=== PATIENT | female | born 1960 | race Caucasian/White ===

== ENCOUNTER 2024-06-18 10:29 | Inpatient (IN) | payer MEDICARE ==
[~2024-06-18] VITALS: Ht 157.5 cm; Wt 68.0 kg
[2024-06-18 12:08] LABS: BASOPHILS ABSOLUTE AUTO 0.05 K/mm3 (0.00-0.23); BASOPHILS PERCENT AUTO 1 % (0-2); EOSINOPHILS ABSOLUTE AUTO 0.07 K/mm3 (0.00-0.68); EOSINOPHILS PERCENT AUTO 1 % (0-6); Hematocrit 34.7 % (33.0-51.0); Hemoglobin 10.2 g/dL (11.5-16.0); IMMATURE GRAN ABSOLUTE AUTO 0.02 K/mm3 (0.00-0.10); IMMATURE GRAN PERCENT AUTO 0 % (0-1); LYMPHOCYTES ABSOLUTE AUTO 1.55 K/mm3 (0.84-5.20); LYMPHOCYTES PERCENT AUTO 17 % (21-46); MONOCYTES ABSOLUTE AUTO 0.57 K/mm3 (0.16-1.47); MONOCYTES PERCENT AUTO 6 % (4-13); Mean Corpuscular HGB 21.2 pg (26.0-34.0); Mean Corpuscular HGB Conc 29.4 g/dL (31.5-36.5); Mean Corpuscular Volume 72 fL (80-100); Mean Platelet Volume 9.4 fL (9.1-12.4); NEUTROPHILS ABSOLUTE AUTO 6.66 K/mm3 (1.96-9.15); NEUTROPHILS PERCENT AUTO 75 % (41-73); Platelet Count 529 K/mm3 (150-400); RDW Coefficient Variation 18.6 % (11.7-14.2); RDW Standard Deviation 47.8 fL (35.1-46.3); Red Blood Cell Count 4.82 M/mm3 (3.80-5.20); White Blood Cell Count 8.92 K/mm3 (4.00-11.30)
[2024-06-18 12:27] LABS: Albumin/Globulin Ratio 0.6 (0.8-1.8); Bilirubin, Total 0.2 mg/dL (0.1-1.0); Bun/Creatinine Ratio 21.9 (12.0-20.0); Calcium, Blood 9.2 mg/dL (8.5-10.1); Creatinine, Blood 0.37 mg/dL (0.40-1.00); Globulin, Blood 4.9 g/dL (2.2-4.0); Potassium, Blood 3.8 mmol/L (3.5-5.5); Total Protein, Blood 7.9 g/dL (6.4-8.2)
[2024-06-18] MEDS ORDERED: Nicotine 14 MG PATCH TOP ONE (16:35)
[2024-06-18] MEDS ORDERED: LORazepam 2 MG/ML 1ML Injection IV ONE (16:55)
[2024-06-18] MEDS ORDERED: Ondansetron HCl 2 MG / ML 2ML Vial IV PRN (17:50)
[2024-06-18] MEDS ORDERED: HydrOXYzine Pamoate 25 MG Cap PO PRN (17:50)
[2024-06-18] MEDS ORDERED: Ipratropium/Albuterol SulF 2.5-0.5MG/3 ML Amp INH SCH (17:50)
[2024-06-18] MEDS ORDERED: FLU VACC TS2024-25(6MOS UP)/PF 45 MCG/0.5 ML SYRINGE IM ONE (17:55)
[2024-06-18] MEDS ORDERED: Albuterol 2.5 MG/3 ML VIAL INH PRN (17:55)
[2024-06-18] MEDS ORDERED: Albuterol 2.5 MG/3 ML VIAL INH ONE (18:00)
[2024-06-18] MEDS ORDERED: PredniSONE 20 MG Tab PO SCH (18:00)
[2024-06-18] MEDS ORDERED: Piperacillin/Tazobactam Sod 3.375 GM in NS 100 ML IV ONE (18:05)
[2024-06-18 18:40] LABS: Source, Urine Clean Catch
[2024-06-18 18:58] LABS: Appearance, Urine Clear (Clear); Bilirubin, Urine Neg (Neg); Blood, Urine 1+ (Neg); Color, Urine Yellow (P-Yellow); Glucose Qualitative, Urine Neg (Neg); Ketones, Urine Neg (Neg); Leukocyte Esterase, Urine Neg (Neg); Nitrite, Urine Neg (Neg); Protein, Urine Neg (Neg); Urobilinogen, Urine NORM (Normal)
[2024-06-18 18:59] LABS: White Blood Cells, Urine 0-2 /hpf (0-5)
[2024-06-18 19:00] LABS: Bacteria Few /hpf; Squamous Epithelial Cells Rare /hpf (Few); Yeast/Fungi Urine Mod /hpf
[2024-06-18 19:33] VITALS: BP 149/63
[2024-06-18] MEDS ORDERED: GABA100 PO (19:42)
[2024-06-18] MEDS ORDERED: DULO60 PO (19:42)
[2024-06-18] MEDS ORDERED: FLUT1DIS5 INH (19:44)
[2024-06-18] MEDS ORDERED: Lactobacil 2-S.Thermo-Bifido 1 1 Cap PO SCH (21:00)
[2024-06-18 22:15] LABS: U Amphetamine Screen Not Detected; U Barbituate Screen Not Detected; U Benzodiazapine Screen Not Detected; U Buprenorphine Screen Not Detected; U Cannabinoids Screen DETECTED; U Cocaine Screen Not Detected; U Methadone Screen Not Detected; U Methamphetamine Screen Not Detected; U Opiates Screen Not Detected; U Oxycodone Screen Not Detected; U Phencyclidine Screen Not Detected
[2024-06-18] MEDS ORDERED: NS 1,000 ML IV SCH (23:30)
[2024-06-19] MEDS ORDERED: Piperacillin/Tazobactam Sod 3.375 GM in NS 100 ML IV SCH
[2024-06-19] MEDS ORDERED: Acetaminophen 325 MG TABLET PO PRN (00:40)
[2024-06-19 03:14] VITALS: BP 153/69
--- NOTE | 2024-06-19 04:06 | NUR ---
SHIFT SUMMARY SANCHEZ WAS DROWSY BUT FULLY ORIENTED WHEN SHE ARRIVED FROM THE ED. PT ABLE TO AMBULATE TO BED INDEPENDENTLY. PT DESCRIBES MILD PAIN TO ABD. ADMIT COMPLETE. PT HAS WHAT LOOKS LIKE A TUNELING ULCER UNDER PANNUS, ABD PAD APPLIED. PAINFUL RED UNBLANCHABLE SKIN TO COCCYX. PLAN FOR SURGERY ON DAYSHIFT TO HAVE A DRAIN PLACED.
[2024-06-19 04:39] LABS: BASOPHILS ABSOLUTE AUTO 0.02 K/mm3 (0.00-0.23); BASOPHILS PERCENT AUTO 0 % (0-2); EOSINOPHILS PERCENT AUTO 0 % (0-6); Hematocrit 32.2 % (33.0-51.0); Hemoglobin 9.5 g/dL (11.5-16.0); IMMATURE GRAN ABSOLUTE AUTO 0.02 K/mm3 (0.00-0.10); IMMATURE GRAN PERCENT AUTO 0 % (0-1); LYMPHOCYTES ABSOLUTE AUTO 0.66 K/mm3 (0.84-5.20); LYMPHOCYTES PERCENT AUTO 9 % (21-46); MONOCYTES ABSOLUTE AUTO 0.18 K/mm3 (0.16-1.47); MONOCYTES PERCENT AUTO 3 % (4-13); Mean Corpuscular HGB 20.8 pg (26.0-34.0); Mean Corpuscular HGB Conc 29.5 g/dL (31.5-36.5); Mean Corpuscular Volume 71 fL (80-100); Mean Platelet Volume 9.2 fL (9.1-12.4); NEUTROPHILS ABSOLUTE AUTO 6.42 K/mm3 (1.96-9.15); NEUTROPHILS PERCENT AUTO 88 % (41-73); Platelet Count 460 K/mm3 (150-400); RDW Coefficient Variation 18.6 % (11.7-14.2); RDW Standard Deviation 46.8 fL (35.1-46.3); Red Blood Cell Count 4.56 M/mm3 (3.80-5.20)
[2024-06-19 04:54] LABS: International Normalized Ratio 0.91; Prothrombin Time Results 9.8 Sec (9.7-11.5)
[2024-06-19 05:04] LABS: Calcium, Blood 8.6 mg/dL (8.5-10.1); Creatinine, Blood 0.41 mg/dL (0.40-1.00); Potassium, Blood 3.8 mmol/L (3.5-5.5)
[2024-06-19] MEDS ORDERED: ALBU90OI INH (07:42)
[2024-06-19] MEDS ORDERED: HYDHCL25 PO (07:44)
[2024-06-19 07:47] VITALS: BP 142/77
[2024-06-19] MEDS ORDERED: Nicotine 14 MG PATCH TOP SCH (09:50)
[2024-06-19] MEDS ORDERED: Diazepam 2 MG Tab PO ONE (13:30)
[2024-06-19] MEDS ORDERED: Mometasone/Formoterol MDI 200/5 mcg 13 GM INH SCH (13:40)
--- NOTE | 2024-06-19 13:50 | NUR ---
PT TO RADIOLOGY FOR DRAIN PLACEMENT
[2024-06-19] MEDS ORDERED: Gabapentin 100 MG Cap PO SCH (14:00)
[2024-06-19] MEDS ORDERED: DULoxetine HCL 60 MG Capsule DR PO SCH (14:00)
[2024-06-19 15:01] VITALS: BP 142/74
--- NOTE | 2024-06-19 15:49 | NUR ---
PT BACK TO ROOM FROM DRAIN PLACEMENT, URISIL DRAIN TO RLQ DRAINING PURULENT DRAINAGE. PT IS ALERT AND RESPONSIVE, VSS, RESTING IN BED. DENIES PAIN. CALL LIGHT IN REACH.
--- NOTE | 2024-06-19 16:39 | NUR ---
SHIFT SUMMARY PT IS A/OX4, SBA TO AMBULATE, VOIDING APPROPRIATELY. FLUIDS GIVEN PER EMAR. URISIL DRAIN IN PLACE DRAINING PURULENT FLUID. ULCER/ABSESS TO RLQ IS OPEN AND DRAINING PURULENT FLUID WELL, ABD PAD PLACED TO ABSORB DRAINAGE, REPLACED X3 THIS SHIFT. TOLERATING REG DIET. PT REQUESTING MORE PAIN MEDICATION, NOTFIIED DR. FAUSTO DR. TO PUT IN ORDERS FOR ADDITIONAL PAIN MEDS. VSS. PT CURRENTLY RESTING IN BED W/ FAMILY AT BEDSIDE.
--- NOTE | 2024-06-19 16:53 | NUR ---
ZOSYN PT TRANSPORTED TO RADIOLOGY DURING 1200 DOSE OF ZOSYN GIVEN AT 1328, ABOUT 30 MLS OF ZOSYN REMAINING. WHEN PT ARRIVED BACK TO UNIT FROM GETTING DRAIN PLACED, IV WAS INFILTRATED. AFTER IV ACCESS RESTABLISHED, 1200 DOSE OF ZOSYN WAS CONTINUED. CONSULTED PHARMACY ABOUT WHETHER OR NOT TO RESUME NORMAL ZOSYN SCHEDULE, PHARMACY ADVISED TO CONSULT PROVIDER. DR. LAMBERT CONSULTED, OK TO RESUME SCHEDULE FOR ZOSYN AND ADMINISTER [address] LAMBERT.
[2024-06-19] MEDS ORDERED: FentaNYL Citrate 50 MCG/ML 2 ML Injection IV PRN (16:55)
[2024-06-19] MEDS ORDERED: OxyCODONE 5 mg/Acetamin 325 mg TABLET PO PRN (18:45)
[2024-06-19 18:52] VITALS: BP 137/67
[2024-06-20 00:12] VITALS: BP 140/68
[2024-06-20 03:17] VITALS: BP 132/79
[2024-06-20 04:39] LABS: Hematocrit 27.9 % (33.0-51.0); Hemoglobin 8.1 g/dL (11.5-16.0); Mean Corpuscular HGB 20.8 pg (26.0-34.0); Mean Corpuscular Volume 72 fL (80-100); Platelet Count 393 K/mm3 (150-400); RDW Coefficient Variation 18.6 % (11.7-14.2); RDW Standard Deviation 47.9 fL (35.1-46.3); Red Blood Cell Count 3.89 M/mm3 (3.80-5.20); White Blood Cell Count 6.26 K/mm3 (4.00-11.30)
[2024-06-20 05:05] LABS: Bun/Creatinine Ratio 31.3 (12.0-20.0); Calcium, Blood 8.6 mg/dL (8.5-10.1); Creatinine, Blood 0.45 mg/dL (0.40-1.00); Potassium, Blood 3.2 mmol/L (3.5-5.5)
--- NOTE | 2024-06-20 06:41 | NUR ---
POD 1 S/P CT DRAIN PLACEMENT. URESIL DRAIN INTACT W/BROWN PURULANT DRNG. LOWER ABD DRESSING CDI. PT REP LESS PAIN SINCE DRAIN PLACEMENT, PAIN MGD PER EMAR W/REP RELIEF. PT IVF AND ABX CONT PER EMAR. PT AMB IN ROOM W/SBA, SAMEER WELL.
[2024-06-20 07:00] VITALS: BP 119/68
[2024-06-20] MEDS ORDERED: Potassium Chloride 20 MEQ TabCR PO ONE (09:00)
[2024-06-20] MEDS ORDERED: Arginine/Glutamine/Calcium Hmb 1 Packet PO SCH (09:00)
[2024-06-20 14:22] VITALS: BP 128/61
--- NOTE | 2024-06-20 16:13 | NUR ---
SHIFT SUMMARY PT HAD DRAIN PLACED TO RLQ YESTERDAY, DRAINING BROWN PURULENT FLUID. DRESSING TO RLQ ULCER REMAINS C/D/I. PT IS A SBA TO THE BR, VOIDING, TOLERATING REG DIET. PT MEDICATED FOR PAIN AND ANXIETY PRN W/ GOOD RESULTS. VSS. IV FLUIDS GIVEN ORDERED, PT ENCOURAGED TO DRINK FLUIDS. PT IS REFUSING PREDNISONE IT MAKES HER "NANCY", BUT IV ABX GIVEN ORDERED. PT CURRENTLY RESTING, CALL LIGHT IN REACH.
[2024-06-20 19:57] VITALS: BP 95/54
--- NOTE | 2024-06-21 04:51 | NUR ---
SHIFT SUMMARY PATIENT SLEPT SOUNDLY IN LONG INTERVALS, MEDCATED ONCE FOR PAIN AND ANXIETY.
[2024-06-21 05:27] VITALS: BP 153/88
[2024-06-21 06:57] VITALS: BP 129/56
[2024-06-21] MEDS ORDERED: GuaiFENesin 600 MG TabCR PO SCH (13:00)
[2024-06-21 15:19] VITALS: BP 131/62
--- NOTE | 2024-06-21 15:19 | NUR ---
HAND OFF SUMMARY: PATIENT IS ALERT AND ORIENTED X4 AND ACTIVE IN HER CARE. IS SATTING >92% ON ROOM AIR, EVEN AND UNLABORED BREATHING. PATIENT GOT UP AND SAT IN CHAIR AND IS STAND BY ASSIST TO BATHROOM TO MANGE LINES/CHORDS. MEPELEX AND BARRIER CREAM WAS PLACED ON PATIENTS COCCYX IT IS RED. PLAN IS AWIATING BLOOD CULTURES TO RETURN. URISIL DRAIN IS INTACT AND DRAINING PURULENT BLOOD TINGED FLUID. NO EVENTS THROUGHOUT SHIFT, WILL REPORT TO RECEVING RN.
[2024-06-21 19:34] VITALS: BP 119/64
[2024-06-22 03:53] VITALS: BP 151/68
--- NOTE | 2024-06-22 04:36 | NUR ---
SHIFT SUMMARY NOC. PT A/O X4. PT'S URESIL DRAIN PATENT AND FREE OF KINKS, PRODUCING PURULENT SEROSANG DRAINAGE. PT MEDICATED FOR PAIN X1 WITH REPORTED RELIEF OF SX. PT VOIDING URINE AND TOLERATING DIET. DENIES N/V. PT AMBULATORY WITH SBA FOR CORD MANAGEMENT. PT MAKES NEEDS KNOWN, CALL LIGHT IN REACH.
[2024-06-22 07:24] VITALS: BP 132/65
[2024-06-22 07:32] VITALS: BP 132/65
[2024-06-22 09:03] LABS: BASOPHILS ABSOLUTE AUTO 0.04 K/mm3 (0.00-0.23); BASOPHILS PERCENT AUTO 1 % (0-2); EOSINOPHILS PERCENT AUTO 2 % (0-6); Hematocrit 29.7 % (33.0-51.0); Hemoglobin 8.7 g/dL (11.5-16.0); IMMATURE GRAN ABSOLUTE AUTO 0.01 K/mm3 (0.00-0.10); IMMATURE GRAN PERCENT AUTO 0 % (0-1); LYMPHOCYTES ABSOLUTE AUTO 1.85 K/mm3 (0.84-5.20); LYMPHOCYTES PERCENT AUTO 32 % (21-46); MONOCYTES ABSOLUTE AUTO 0.38 K/mm3 (0.16-1.47); MONOCYTES PERCENT AUTO 7 % (4-13); Mean Corpuscular HGB Conc 29.3 g/dL (31.5-36.5); Mean Corpuscular Volume 72 fL (80-100); Mean Platelet Volume 9.3 fL (9.1-12.4); NEUTROPHILS PERCENT AUTO 59 % (41-73); Platelet Count 387 K/mm3 (150-400); RDW Coefficient Variation 18.6 % (11.7-14.2); RDW Standard Deviation 47.7 fL (35.1-46.3); Red Blood Cell Count 4.15 M/mm3 (3.80-5.20); White Blood Cell Count 5.78 K/mm3 (4.00-11.30)
[2024-06-22 09:16] LABS: Albumin, Blood 2.4 g/dL (3.4-5.0); Anion Gap 9 mmol/L (3-11); Blood Urea Nitrogen 10 mg/dL (8-24); CO2, Blood 27 mmol/L (21-32); Calcium, Blood 8.4 mg/dL (8.5-10.1); Chloride, Blood 111 mmol/L (98-108); Creatinine, Blood 0.42 mg/dL (0.40-1.00); Glomerular Filtration Rate 108 (60-); Glucose, Blood 147 mg/dL (70-99); Phosphorus, Blood 3.1 mg/dL (2.5-4.9); Potassium, Blood 3.5 mmol/L (3.5-5.5); Sodium, Blood 143 mmol/L (136-145)
--- NOTE | 2024-06-22 14:01 | NUR ---
Pt. is resting in her bed, but responds when I enter the room. Pt. displays evidence of being both pleasant and curious. Facilitate a life review, and consider matters of asher and belief. Pt. verbalized an interest in the local [facility]. With pastoral care and a calming presence this terminal gauger supervisor answered a th Pts. questions. Prayed with Pt. Pt. displayed evidence of being encouraged and supported. Pt. verbalized gratitude for the spiritual care visit.
[2024-06-22 14:31] VITALS: BP 122/54
--- NOTE | 2024-06-22 16:46 | NUR ---
shift summary pt remains ind in room, drain remains patent and draining purulent drainage. pt denies pain at this time. tolerating diet well. reports passing some flatus. denies needs during shift, calls appropriatly.
[2024-06-22 19:20] VITALS: BP 119/56
[2024-06-23 04:30] VITALS: BP 146/74
[2024-06-23] MEDS ORDERED: Ipratropium/Albuterol SulF 2.5-0.5MG/3 ML Amp INH SCH (07:00)
[2024-06-23 07:22] VITALS: BP 148/69
--- NOTE | 2024-06-23 07:44 | NUR ---
SHIFT SUMMARY NOC. PT ADMIT FOR ABDOMINAL WALL ABCESS WITH URESIL DRAIN. DRAIN PRODUCING PURULENT, CLOUDY, THICK RED DRAINAGE. PT MEDICATED FOR PAIN X2 THIS SHIFT WITH REPORTED RELIEF. PT A/OX4. PT VOIDING URINE AND TOLERATING PO INTAKE. PT MAKES NEEDS KNOWN AND CALL LIGHT IN REACH.
--- NOTE | 2024-06-23 10:13 | NUR ---
MORNING NOTE THIS RN ASSUMED CARE AT APPROX 0715. PATIENT ALERT AND ORIENTED X4. COMMUNICATES NEEDS EFFECTIVELY. DOES EXPERIENCE EPISODES OF INCREASED ANXIETY - MANAGING PER EMAR AND WITH THERAPUETIC DISCUSSION/EDUCATION PRN. REPORTING 01/25 ABD/L SHOULDER PAIN - NOC RN MEDICATED PER EMAR W/ RELIEF. VSS. ON ROOM AIR, SATs >90%. INFREQUENT HACKING COUGH. HYPOACTIVE BOWEL TONES, ABD SOFT. TENDER. URACEL DRAIN IN PLACE - MINIMAL RED WHITE PURULENT DRAINAGE NOTED. DENIES N/V. TOLERATING PO INTAKE. REPORTS SOME FLATULENCE. MD MITTAL AT BEDSIDE THIS MORNING. IV INFILITRATED - RECEIVED VERBAL TO HOLD OFF ON NEW IV PLACEMENT HOPING TO TRANSITION TO PO ABX TODAY AFTER DISCUSSING WITH HOSPITALIST. UP WITH 1P ASSIST FWW TO RESTROOM. CALL LIGHT IN REACH.
--- NOTE | 2024-06-23 11:45 | NUR ---
UPDATE 1200 IV ABX ORDERED. CLARIFIED WITH MD MITTAL THAT PATIENT IS CLEAR TO SWITCH TO PO ABX. HOSPITALIST MD CISSE CONTACTED - MD TO REVIEW CHART AND PLACE ORDER FOR PO ABX. RECEIVED VERBAL TO NOT ADMINISTER 1200 IV ABX DOSE. NO IV ACCESS ORDER RECEIVED.
[2024-06-23 14:24] VITALS: BP 134/65
[2024-06-23] MEDS ORDERED: Nicoderm Cq1 EAC1 TOP (15:13)
[2024-06-23] MEDS ORDERED: JUVEN PACKET1 EAC3 PO (15:13)
[2024-06-23] MEDS ORDERED: AMOCLA875 PO (15:14)
[2024-06-23] MEDS ORDERED: Percocet 5-3251 EACH PO (15:14)
[2024-06-23] MEDS ORDERED: VISBIOME 112.51 EACH PO (15:15)
[2024-06-23] MEDS ORDERED: SULTRIDS PO (15:15)
--- NOTE | 2024-06-23 15:50 | NUR ---
DISCHARGE NOTE NO ACUTE CHANGES SINCE PREVIOUS DOCUMENTATION. VSS. MD MITTAL AND TANNA ROUNDED TODAY - DC HOME ORDERED. UROCEL DRAIN WITH MINIMAL SEROSANGUINOUS DRAINAGE - SLIGHTLY RED/WHITE. MANAGING ABD PAIN WITH PRESCRIBED THERAPY. DC EDUCATION PROVIDED, INCLUDING DEMONSTRATION ON HOW TO DRAIN UROCEL. SUPPLIES PROVIDED. PATIENT STATES UNDERSTANDING. CASE MANAGEMENT MET PRIOR TO DC - PROVIDED RESOURCES ON ESTABLISHING A PCP. HARD SCRIPTS PROVIDED. FAMILY MEMBER AT BEDSIDE - STATES UNDERSTANDING OF EDUCATION WELL. PATIENT TRANSFERRED OFF UNIT VIA WHEELCHAIR AT APPROX 1530. PERSONAL BELONGINGS WITH PATIENT.
== END 2024-06-23 15:55 | disposition home or self-care (01) | DRG 863 ==
LOC: ER 10:29 → SURS 18:26 → MEDS 18:26 → SURS 19:20
PROVIDERS: Internal Medicine; Nurse Practitioner Acute Care; Physician Assistant; ADMIT Internal Medicine
PROC: 0W9F30Z Drainage of Abdominal Wall with Drainage Device, Percutaneous Approach (ICD-10-PCS; principal; 2024-06-19)
DX: T81.40XA Infection following a procedure, unspecified, initial encounter (principal); L02.211 Cutaneous abscess of abdominal wall; J44.1 Chronic obstructive pulmonary disease with (acute) exacerbation; Z98.84 Bariatric surgery status; F41.9 Anxiety disorder, unspecified; E66.9 Obesity, unspecified; F32.A Depression, unspecified; Z87.891 Personal history of nicotine dependence; Z88.5 Allergy status to narcotic agent; Z88.1 Allergy status to other antibiotic agents
CPT/HCPCS: 36415; 49406; 74177; 80048; 80053; 80069; 81001; 83690; 84145; 85025; 85027; 85610; 85730; 86140; 87040; 87070; 87075; 87205; 94640; 94664; 94760; 94762; 96374-59; 99285-25; A9270; J2060; J2543; J3010; J7030; J7512; Q0177; Q9967

== ENCOUNTER → 2024-07-08 | Outpatient (CLI) | payer MEDICARE ==
[~2024-07-08] MED LIST: ALBU90OI INH; AMOCLA875 PO; DULO60 PO; FLUT1DIS5 INH; GABA100 PO; HYDHCL25 PO; JUVEN PACKET1 EAC3 PO; Nicoderm Cq1 EAC1 TOP; Percocet 5-3251 EACH PO; SULTRIDS PO; VISBIOME 112.51 EACH PO
== END ==
LOC: LAB 17:08 → LAB SHORT 17:08
DX: T81.49XA Infection following a procedure, other surgical site, initial encounter (principal)
CPT/HCPCS: 87070; 87075; 87205

== ENCOUNTER 2024-07-25 12:08 | Emergency (ER) | payer MEDICARE ==
[~2024-07-25] VITALS: Ht 157.5 cm; Wt 65.8 kg
[2024-07-25 14:22] LABS: BASOPHILS ABSOLUTE AUTO 0.06 K/mm3 (0.00-0.23); BASOPHILS PERCENT AUTO 1 % (0-2); EOSINOPHILS ABSOLUTE AUTO 0.13 K/mm3 (0.00-0.68); EOSINOPHILS PERCENT AUTO 2 % (0-6); Hematocrit 32.4 % (33.0-51.0); Hemoglobin 9.5 g/dL (11.5-16.0); IMMATURE GRAN ABSOLUTE AUTO 0.01 K/mm3 (0.00-0.10); IMMATURE GRAN PERCENT AUTO 0 % (0-1); LYMPHOCYTES PERCENT AUTO 29 % (21-46); MONOCYTES ABSOLUTE AUTO 0.43 K/mm3 (0.16-1.47); MONOCYTES PERCENT AUTO 6 % (4-13); Mean Corpuscular HGB 20.3 pg (26.0-34.0); Mean Corpuscular HGB Conc 29.3 g/dL (31.5-36.5); Mean Corpuscular Volume 69 fL (80-100); Mean Platelet Volume 9.8 fL (9.1-12.4); NEUTROPHILS ABSOLUTE AUTO 4.53 K/mm3 (1.96-9.15); NEUTROPHILS PERCENT AUTO 63 % (41-73); Platelet Count 391 K/mm3 (150-400); RDW Coefficient Variation 20.7 % (11.7-14.2); RDW Standard Deviation 48.7 fL (35.1-46.3); Red Blood Cell Count 4.69 M/mm3 (3.80-5.20); White Blood Cell Count 7.26 K/mm3 (4.00-11.30)
[2024-07-25 14:33] LABS: Albumin, Blood 3.3 g/dL (3.4-5.0); Albumin/Globulin Ratio 0.8 (0.8-1.8); Bilirubin, Total 0.3 mg/dL (0.1-1.0); Bun/Creatinine Ratio 24.7 (12.0-20.0); Calcium, Blood 9.3 mg/dL (8.5-10.1); Creatinine, Blood 0.45 mg/dL (0.40-1.00); Globulin, Blood 4.3 g/dL (2.2-4.0); Potassium, Blood 4.4 mmol/L (3.5-5.5); Total Protein, Blood 7.6 g/dL (6.4-8.2)
== END 2024-07-25 20:48 | disposition home or self-care (01) ==
LOC: ER 12:08
PROVIDERS: Student in an Organized Health Care Education/Training Program
DX: L02.211 Cutaneous abscess of abdominal wall (principal); Z79.51 Long term (current) use of inhaled steroids; Z79.899 Other long term (current) drug therapy; Z88.1 Allergy status to other antibiotic agents; Z88.5 Allergy status to narcotic agent
CPT/HCPCS: 74177; 80053; 85025; 99283-25; Q9967

== ENCOUNTER 2024-08-22 02:29 | Day surgery (SDC) | payer MEDICARE | END 2024-08-22 23:00 | disposition home or self-care (01) | LOC: WOUND 02:29 | DX: T81.31XD Disruption of external operation (surgical) wound, not elsewhere classified, subsequent encounter (principal); Z98.84 Bariatric surgery status; Z88.8 Allergy status to other drugs, medicaments and biological substances; S31.602 Unspecified open wound of abdominal wall, epigastric region with penetration into peritoneal cavity; L02.211 Cutaneous abscess of abdominal wall; Y83.8 Other surgical procedures as the cause of abnormal reaction of the patient, or of later complication, without mention of misadventure at the time of the procedure; X58.XXXS Exposure to other specified factors, sequela | CPT/HCPCS: A6213; G0463 ==

== ENCOUNTER 2024-08-30 02:46 | Day surgery (SDC) | payer MEDICARE | END 2024-08-30 23:00 | disposition home or self-care (01) | LOC: WOUND 02:46 | DX: T81.31XD Disruption of external operation (surgical) wound, not elsewhere classified, subsequent encounter (principal); L02.211 Cutaneous abscess of abdominal wall | CPT/HCPCS: A6213; G0463 ==

== ENCOUNTER 2024-09-07 02:34 | Day surgery (SDC) | payer MEDICARE | END 2024-09-07 23:00 | disposition home or self-care (01) | LOC: WOUND 02:34 | DX: T81.31XD Disruption of external operation (surgical) wound, not elsewhere classified, subsequent encounter (principal); L02.211 Cutaneous abscess of abdominal wall; Z98.84 Bariatric surgery status; Y83.8 Other surgical procedures as the cause of abnormal reaction of the patient, or of later complication, without mention of misadventure at the time of the procedure | CPT/HCPCS: A6213; G0463 ==

== ENCOUNTER → 2024-09-13 | Day surgery (SDC) | payer MEDICARE | LOC: WOUND 01:38 | DX: T81.31XD Disruption of external operation (surgical) wound, not elsewhere classified, subsequent encounter (principal); Z98.84 Bariatric surgery status | CPT/HCPCS: G0463 ==

== ENCOUNTER 2024-09-20 00:53 | Day surgery (SDC) | payer MEDICARE | END 2024-09-20 23:00 | disposition home or self-care (01) | LOC: WOUND 00:53 | DX: T81.31XD Disruption of external operation (surgical) wound, not elsewhere classified, subsequent encounter (principal); L02.211 Cutaneous abscess of abdominal wall; Y83.8 Other surgical procedures as the cause of abnormal reaction of the patient, or of later complication, without mention of misadventure at the time of the procedure; Z98.84 Bariatric surgery status | CPT/HCPCS: G0463 ==

== ENCOUNTER 2024-10-03 03:59 | Day surgery (SDC) | payer MEDICARE | END 2024-10-03 23:09 | disposition home or self-care (01) | LOC: WOUND 03:59 | DX: T81.31XD Disruption of external operation (surgical) wound, not elsewhere classified, subsequent encounter (principal); Z87.828 Personal history of other (healed) physical injury and trauma; Z98.84 Bariatric surgery status | CPT/HCPCS: G0463 ==

== ENCOUNTER 2024-12-02 11:39 | Emergency (ER) | payer MEDICARE, OTHER ==
[~2024-12-02] VITALS: Ht 157.5 cm; Wt 63.5 kg
[2024-12-02] MEDS ORDERED: Lidocaine 4% 1 Patch TOP ONE (12:35)
[2024-12-02] MEDS ORDERED: Methocarbamol 500 MG Tab PO ONE (12:35)
[2024-12-02] MEDS ORDERED: Roxicodone5 MG PO (13:28)
[2024-12-02] MEDS ORDERED: ACETAMINOPHEN500 MG PO (13:28)
[2024-12-02] MEDS ORDERED: Robaxin750 MG PO (13:28)
== END 2024-12-02 14:06 | disposition home or self-care (01) ==
LOC: ER 11:39
DX: S00.83XA Contusion of other part of head, initial encounter (principal); S20.212A Contusion of left front wall of thorax, initial encounter; J44.9 Chronic obstructive pulmonary disease, unspecified; Z88.5 Allergy status to narcotic agent; Z88.8 Allergy status to other drugs, medicaments and biological substances; Z79.2 Long term (current) use of antibiotics; Z79.899 Other long term (current) drug therapy; W01.0XXA Fall on same level from slipping, tripping and stumbling without subsequent striking against object, initial encounter
CPT/HCPCS: 71046; 99283-25; A9270